=== PATIENT | male | born 1970 | race Two or more races ===

== ENCOUNTER 2020-04-19 11:56 | Outpatient (CLI) | payer OTHER | END 2020-04-19 11:58 | disposition home or self-care (01) | LOC: RAD 11:56 | PROVIDERS: ATTEND Orthopaedic Surgery | DX: M25.552 Pain in left hip (principal) ==

== ENCOUNTER 2020-04-21 13:02 | Outpatient (CLI) | payer OTHER | END 2020-04-21 18:00 | disposition home or self-care (01) | LOC: LAB 13:02 | PROVIDERS: ATTEND Orthopaedic Surgery | DX: D64.89 Other specified anemias (principal); D68.8 Other specified coagulation defects; N39.0 Urinary tract infection, site not specified; E88.89 Other specified metabolic disorders; Z22.322 Carrier or suspected carrier of Methicillin resistant Staphylococcus aureus; Z76.89 Persons encountering health services in other specified circumstances; I49.8 Other specified cardiac arrhythmias; I10 Essential (primary) hypertension; M25.562 Pain in left knee ==

== ENCOUNTER → 2020-04-30 | Outpatient (CLI) | payer OTHER | END | disposition home or self-care (01) | LOC: LAB 10:38 | PROVIDERS: ATTEND Orthopaedic Surgery | DX: M06.4 Inflammatory polyarthropathy (principal); D64.89 Other specified anemias ==

== ENCOUNTER 2020-05-11 08:31 | Inpatient (IN) | payer OTHER ==
[~2020-05-11] VITALS: Ht 172.7 cm; Wt 90.7 kg
== END 2020-05-13 17:43 | DRG 470 ==
LOC: CIR.AMB 08:31 → SURH 15:45 → O/R 15:45 → SURH 05-12 12:03
PROVIDERS: ADMIT Orthopaedic Surgery; ATTEND Orthopaedic Surgery
PROC: 0SRB0JZ Replacement of Left Hip Joint with Synthetic Substitute, Open Approach (ICD-10-PCS; principal; 2020-05-11 09:45)
DX: M16.12 Unilateral primary osteoarthritis, left hip (principal)